=== PATIENT | male | born 1940 | race Caucasian/White ===

== ENCOUNTER 2017-01-28 00:18 | Inpatient (IN) | payer MEDICARE, OTHER ==
[2017-01-28] VITALS (8 sets, daily range): BP systolic 133–229; BP diastolic 55–90
[~2017-01-28] VITALS: Ht 175.3 cm; Wt 62.6 kg
--- NOTE | 2017-01-28 00:33 | NUR ---
AMBULATED TO ER BED 12
--- NOTE | 2017-01-28 00:35 | NUR ---
76 y/o M W/C/O ELEVATED BLOOD PRESSURE DESPITE TAKING BP MEDS. PT DENIES ANY CHEST PAIN OR SOB. MED HX HTN, COMPUTER PROGRAMMING MANAGER, HEART BIPASS, GALLSTONES AND DM. PT ON DIRECTOR OF ENTERPRISE ARCHITECTURE, NSR. ER MADE AWARE.
--- NOTE | 2017-01-28 01:06 | NUR ---
Note junito in EDM - 01/28/17 at 0129 by SARITA PT TAKEN TO FLOOR VIA GURNEY, MONITOR IN BED. STABLE, NO S/S OF DISTRESS NOTED UPON TRANSFER. ACCOMPANIED BY CHARGE NURSE, AND ME PRIMARY NURSE.
[2017-01-28 01:20] LABS: HEMATOCRIT 30.9 % (36-52); HEMOGLOBIN 9.7 g/dL (12.0-18.0); MEAN CORPUSCULAR HGB CONC 32 g/dL (33-37); WHITE BLOOD COUNT (AUTO) 5.3 K/uL (4.8-10.8)
--- NOTE | 2017-01-28 01:20 | NUR ---
PT TAKEN FOR CT/ X-RAY.
[2017-01-28 01:28] LABS: MEAN CORPUSCULAR HEMOGLOBIN 29 pg (27-31); MEAN CORPUSCULAR VOLUME 92 fL (80-94); PLATELET COUNT (AUTO) 126 K/uL (140-450); RED BLOOD CELL COUNT(AUTO) 3.36 MIL/uL (4.20-6.10); RED CELL DISTRIBUTION WIDTH 13.7 % (11.6-13.7)
[2017-01-28 01:32] LABS: ANION GAP 9.7 (8-16); CARBON DIOXIDE 31.7 mmol/L (21-32); CHLORIDE 106 mmol/L (98-107); CREATININE 1.7 mg/dL (0.7-1.3); GLUCOSE 97 mg/dL (74-106); POTASSIUM 5.4 mmol/L (3.5-5.1); SODIUM SERUM 142 mmol/L (136-145); UREA NITROGEN, BLOOD 39 mg/dL (7-18)
[2017-01-28 01:33] LABS: LYMPHOCYTES % (MANUAL) 18 % (20-46); MONOCYTES % (MANUAL) 6 % (5-12)
[2017-01-28 01:38] LABS: ALBUMIN 2.9 g/dL (3.4-5.0); ASPARTATE AMINOTRANSFERASE 15 U/L (15-37); TOTAL BILIRUBIN 0.3 mg/dL (0.0-1.0)
[2017-01-28 01:49] LABS: CREATINE KINASE MB 0.6 ng/mL (0-3.6)
[2017-01-28] MEDS ORDERED: hydrALAZINE 20 MG/ML VIAL IVP STA (02:07)
[2017-01-28] MEDS ORDERED: SODIUM POLYSTYRENE 15 GM/60 ML UDBTL PO ONE (02:10)
[2017-01-28] MEDS ORDERED: HYDROcodone/APAP 5/325 MG 1 TAB TAB PO PRN (02:25)
[2017-01-28] MEDS ORDERED: MORPHINE SULFATE 2 MG/ML SYR IVP PRN (02:25)
[2017-01-28] MEDS ORDERED: ACETAMINOPHEN 325 MG TAB PO PRN (02:25)
[2017-01-28] MEDS ORDERED: ONDANSETRON 4 MG/2 ML VIAL IVP PRN (02:25)
--- NOTE | 2017-01-28 02:40 | NUR ---
Patient will be admitted to care of dr burden. Admited to telemetry. Will go to [id number]. Belongings list completed. Report to SAUL jennings.
[2017-01-28 02:43] LABS: PROTHROMBIN TIME 10.6 secs (10.8-13.4)
[2017-01-28 02:45] LABS: CHOL/HDL RATIO 1.8 (1-4.5)
[2017-01-28] MEDS ORDERED: SIMV40TA1 PO (03:02)
[2017-01-28] MEDS ORDERED: CARV12.5 PO (03:02)
[2017-01-28] MEDS ORDERED: RANI300S3 PO (03:02)
[2017-01-28] MEDS ORDERED: LISI-420 PO (03:02)
[2017-01-28] MEDS ORDERED: TIM.5OS OP (03:02)
[2017-01-28] MEDS ORDERED: AMLO5TAB PO (03:02)
--- NOTE | 2017-01-28 03:03 | NUR ---
PT TRANSFERED TO FLOOR VIA GURNEY. GAMING WORKER IN BED, NO S/S OF DISTRESS NOTED UPON D/C. ACCOMPANIED BY ME PRIMARY NURSE, AND EMT.
[2017-01-28] MEDS ORDERED: LISINOPRIL 20 MG TAB PO SCH ×4 (03:35→21:00)
[2017-01-28] MEDS ORDERED: ENALAPRILAT 2.5 MG/2 ML VIAL IVP ONE (03:35)
[2017-01-28 03:45] LABS: APPEARANCE,URINE CLEAR (CLEAR); BILIRUBIN,URINE NEGATIVE (NEGATIVE); BLOOD, URINE NEGATIVE (NEGATIVE); COLOR,URINE YELLOW (YELLOW); LEUKOCYTE ESTERASE ,URINE NEGATIVE (NEGATIVE); NITRITE, URINE NEGATIVE (NEGATIVE); PH,URINE 6.5 (5.0-9.0); UGLUCOSE NEGATIVE (NEGATIVE)
[2017-01-28 03:52] LABS: BARBITURATE, URINE NEG. ng/ml (NEG <=200); BENZODIAZEPINE, URINE NEG. ng/mL (NEG <=200); CANNABINOID, URINE NEG. ng/mL (NEG <=50); COCAINE, URINE NEG. ng/mL (NEG <=300); OPIATE, URINE NEG. ng/mL (NEG <=2000); PHENCYCLIDINE SCREEN,URINE NEG. ng/mL (NEG <=25)
[2017-01-28 03:53] LABS: RBC,URINE 0-5 (RARE) /HPF (0-5); WBC,URINE 0-5 (RARE) /HPF (0-5)
--- NOTE | 2017-01-28 04:11 | NUR ---
RECEIVED PT. AT 03:05 BY CHARGE NURSE FROM ER. AWAKE AND ALERT. ORIENTED. NO SOB. DENIES ANY PAIN AT THIS TIME. DX. OF HYPERKALEMIA AND HYPERTENSION. PT. ORIENTED TO CALL LIGHT USE AND RAPID RESPONSE. USES CANE TO AMBULATE AROUND. SKIN INTACT. AFEBRILE. ORIENTED TO ROOM AND CAREGIVERS. VERBALIZES WELL IN IN[place]ES[place].
[2017-01-28] MEDS: NACL 0.9% 1,000 ML IV SCH ×2 (04:22→12:21)
--- NOTE | 2017-01-28 04:28 | NUR ---
PT. AMBULATES TO RESTROOM TO GO BM. OFFERRED TO PUT BEDSIDE COMMODE. REFUSED.STATED THAT HE WANTS TO GO RESTROOM THAT WAY HE CAN REALLY GO BM. UA COLLECTED AND SENT TO LAB. CALL LIGHT WITH IN REACH. ENCOURAGED TO CALL FOR ANY HELP HE MAY NEED OR IF IN PAIN.
--- NOTE | 2017-01-28 06:37 | NUR ---
ABLE TO GO BM X 3 FROM [place]ATE GIVEN TO HIM IN ER RT HYPERKALEMIC. ABLE TO VERBALIZE NEEDS WELL. TELEMETRY MONITORING.
--- NOTE | 2017-01-28 07:05 | NUR ---
RECEIVED PT REPORT AT BEDSIDE FROM NIGHT NURSE. PT IS AAOX4 AND SHOWS NO S/S OF ACUTE DISTRESS ON ROOM AIR. PT SKIN IS INTACT. PT AMB TO RR WITH CANE WITH A STEADY GAIT. PT ON TELE MONITOR. IV NOTED ON THE LT AC WITH IVF'S INFUSING WELL. IV IS PATENT AND INTACT WITH NO SIGNS OF INFILTRATION. PT WAS EXPLAINED POC FOR TODAY AND VERBALIZE UNDERSTANDING. THE BED IS IN LOW POSITION WITH CALL LIGHT WITHIN REACH. FALL PRECAUTIONS IN PLACE, ALL NEED'S MET AT THIS TIME. WILL CONTINUE TO MONITOR.
[2017-01-28] MEDS ORDERED: amLODIPine 5 MG TAB PO SCH ×2 (07:40→09:00)
[2017-01-28] MEDS ORDERED: CARVEDILOL 12.5 MG TAB PO SCH ×2 (07:40→09:00)
--- NOTE | 2017-01-28 07:50 | NUR ---
PT BP IS 172/65 HR 80 AND DENIES CHEST PAIN AND SOB. PT HAS AM BP MEDICATIONS. WILL ADMINISTER AND REASSESS BP PRN.
[2017-01-28 07:58] LABS: ANION GAP 9.5 (8-16); CARBON DIOXIDE 29.4 mmol/L (21-32); CHLORIDE 108 mmol/L (98-107); CREATININE 1.5 mg/dL (0.7-1.3); GLUCOSE 88 mg/dL (74-106); POTASSIUM 4.9 mmol/L (3.5-5.1); SODIUM SERUM 142 mmol/L (136-145); UREA NITROGEN, BLOOD 35 mg/dL (7-18)
[2017-01-28] MEDS: DOCUSATE 100 MG/10 ML UDC GT SCH (08:15)
--- NOTE | 2017-01-28 08:30 | NUR ---
ADMINISTERED SCHEDULED MEDICATIONS. PT TOLERATED WELL AND SWALLOWED WITHOUT DIFFICULTY. WILL CONTINUE TO MONITOR.
[2017-01-28] MEDS ORDERED: PANTOPRAZOLE 40 MG TABEC PO SCH (09:00)
[2017-01-28] MEDS ORDERED: TIMOLOL OP 0.5% 5 ML BTL OP SCH (09:00)
[2017-01-28] MEDS ORDERED: SIMVASTATIN 40 MG TAB PO SCH ×2 (09:00)
[2017-01-28] MEDS: ATORVASTATIN 20 MG TAB PO SCH (09:36)
--- NOTE | 2017-01-28 09:45 | NUR ---
BP WAS REASSESSED AND IS 148/62 HR 84, PT DENIES CHEST PAIN AND SOB.
--- NOTE | 2017-01-28 10:45 | NUR ---
PT IS RESTING COMFORTABLY IN BED AND SHOWS NO S/S OF ACUTE DISTRESS ON ROOM AIR.
--- NOTE | 2017-01-28 12:13 | NUR ---
CM NOTE INITIAL REVIEW FAXED TO [facility] / FAX# [phone], ATTN: CALEB #[phone]
--- NOTE | 2017-01-28 12:15 | NUR ---
PT IS AAOX4 AND SHOWS NO S/S OF ACUTE DISTRESS ON ROOM AIR. PT DENIES PAIN AND SOB. ALL OF PT'S NEEDS AT MET AT THIS TIME.
--- NOTE | 2017-01-28 12:59 | NUR ---
PATIENT HAS BEEN SCREENED AND CATEGORIZED MODERATE NUTRITION RISK. PATIENT WILL BE SEEN WITHIN 3-5 DAYS OF ADMISSION. 01/30/17-02/01/[address]
--- NOTE | 2017-01-28 13:55 | NUR ---
PT IS SLEEPING AND SHOWS NO S/S OF ACUTE DISTRESS ON ROOM AIR. PT IS EASILY AROUSABLE TO VOICE. PT'S NEEDS MET AT THIS TIME. WILL CONTINUE TO MONITOR.
--- NOTE | 2017-01-28 16:15 | NUR ---
PT HAS SISTER AT BEDSIDE. PT IS AAOX4 AND SHOWS NO S/S OF ACUTE DISTRESS ON ROOM AIR. ALL OF PT'S NEEDS MET AT THIS TIME. WILL CONTINUE TO MONITOR.
--- NOTE | 2017-01-28 18:15 | NUR ---
PT TOLERATED DINNER WELL AND DENIES NAUSEA, VOMITING, CHEST PAIN AND SOB. ALL OF PT'S NEEDS MET AT THIS TIME. THE BED IS IN LOW POSITION WITH CALL LIGHT WITHIN REACH. WILL CONTINUE TO MONITOR.
--- NOTE | 2017-01-28 19:25 | NUR ---
GAVE PT REPORT AT BEDSIDE TO NIGHT NURSE. PT ENDORSED IN STABLE CONDITION.
[2017-01-28] MEDS: CARVEDILOL 12.5 MG TAB PO SCH (21:07)
[2017-01-28] MEDS: TIMOLOL OP 0.5% 5 ML BTL BOTH EYES SCH (21:07)
--- NOTE | 2017-01-28 21:11 | NUR ---
ADMINISTERED DUE MEDS WITH EDUCATION, PT VERBALIZED UNDERSTANDING, TOLERATED MEDS WELL. ALL NEEDS MET. IVF INFUSING WELL. SAFETY MEASURES ENSURED. CALL LIGHT WITHIN REACH. WILL CONTINUE TO MONITOR.
--- NOTE | 2017-01-28 22:27 | NUR ---
CALLED DR ESTES, DISCUSSED DX HTN, HYPERKALEMIA, HX OF DM. ASKED PT IF HE IS DIABETIC, PT STATED "I THINK I'M BORDERLINE." DISCUSSED THAT THERE ARE NO ACCUCHECKS ACHS AT THIS TIME. PT'S LAST BLOOD GLUCOSE WAS 88 FROM PT'S CBC UPON ADMISSION. MD AWARE, NO ADDITIONAL ORDERS AT THIS TIME.
--- NOTE | 2017-01-28 23:58 | NUR ---
PT RESTING COMFORTABLY, NO S/S OF ACUTE DISTRESS. ALL NEEDS MET. IVF INFUSING WELL. SAFETY MEASURES ENSURED. CALL LIGHT WITHIN REACH. WILL CONTINUE TO MONITOR.
[2017-01-29] VITALS: BP 129/55
--- NOTE | 2017-01-29 02:01 | NUR ---
PT SLEEPING COMFORTABLY, NO S/S OF ACUTE DISTRESS. ALL NEEDS MET. IVF INFUSING WELL. SAFETY MEASURES ENSURED. CALL LIGHT WITHIN REACH. WILL CONTINUE TO MONITOR.
[2017-01-29 04:00] VITALS: BP 133/52
--- NOTE | 2017-01-29 04:11 | NUR ---
PT SLEEPING COMFORTABLY, AROUSABLE TO NAME, NO S/S OF ACUTE DISTRESS. ALL NEEDS MET. IVF INFUSING WELL. SAFETY MEASURES ENSURED. CALL LIGHT WITHIN REACH. WILL CONTINUE TO MONITOR.
[2017-01-29 06:53] LABS: BASOPHILS # (AUTO) 0.1 K/uL (0.00-0.22); BASOPHILS % (AUTO) 1.7 % (0.0-2.0); EOSINOPHILS # (AUTO) 0.1 K/uL (0-0.4); EOSINOPHILS % (AUTO) 1.5 % (0.0-4.0); HEMOGLOBIN 8.7 g/dL (12.0-18.0); LYMPHOCYTES % (AUTO) 20.9 % (20.5-51.1); MEAN CORPUSCULAR HEMOGLOBIN 29 pg (27-31); MEAN CORPUSCULAR HGB CONC 32 g/dL (33-37); MEAN CORPUSCULAR VOLUME 91 fL (80-94); MONOCYTES # (AUTO) 0.5 K/uL (0.8-1.0); MONOCYTES % (AUTO) 10.9 % (1.7-9.3); PLATELET COUNT (AUTO) 109 K/uL (140-450); RED BLOOD CELL COUNT(AUTO) 2.97 MIL/uL (4.20-6.10); RED CELL DISTRIBUTION WIDTH 13.7 % (11.6-13.7); WHITE BLOOD COUNT (AUTO) 4.7 K/uL (4.8-10.8)
--- NOTE | 2017-01-29 07:10 | NUR ---
ENDORSED PLAN OF CARE TO AM NURSE. CONDITION STABLE.
--- NOTE | 2017-01-29 07:11 | NUR ---
RECEIVED REPORT FROM ANTITANK ASSAULT GUNNER NURSE AT BEDSIDE FOR CONTINUITY OF CARE. PT IS AWAKE AND ORIENTED. INTRODUCED OURSELVES AND UPDATED THE BOARD. PT IS HARD ON HEARING ON RT SIDE. IV ON L AC 22G NS AT 100ML. IV PUMP BEEPING. HIGH PRESSURE. WILL COME BACK AND FIX. TURNED IT OFF FOR NOW. CANE ON SIDE OF BED. WILL CONTINUE TO MONITOR PT.
[2017-01-29 07:22] LABS: MAGNESIUM 1.8 mg/dL (1.8-2.4); PHOSPHORUS 3.9 mg/dL (2.5-4.9)
[2017-01-29 07:34] LABS: ANION GAP 9.2 (8-16); CARBON DIOXIDE 29.6 mmol/L (21-32); CHLORIDE 110 mmol/L (98-107); CREATININE 1.6 mg/dL (0.7-1.3); GLUCOSE 88 mg/dL (74-106); POTASSIUM 4.8 mmol/L (3.5-5.1); SODIUM SERUM 144 mmol/L (136-145); UREA NITROGEN, BLOOD 29 mg/dL (7-18)
--- NOTE | 2017-01-29 07:35 | NUR ---
V/S: HIGH BP 167/54 X 2. ALL OTHERS WITHIN NORMAL RANGE. KADI RIZZO. PLAN FOR TODAY: CT OF CHEST AND POSSIBLY D/C TOMORROW. WILL CONTINUE TO MONITOR PT.
[2017-01-29 08:00] VITALS: BP 167/54
[2017-01-29] MEDS: ATORVASTATIN 20 MG TAB PO SCH (09:10)
[2017-01-29] MEDS: DOCUSATE 100 MG/10 ML UDC GT SCH (09:10)
[2017-01-29] MEDS: CARVEDILOL 12.5 MG TAB PO SCH ×2 (09:11→20:30)
[2017-01-29] MEDS: amLODIPine 5 MG TAB PO SCH (09:11)
[2017-01-29] MEDS: PANTOPRAZOLE 40 MG TABEC PO SCH (09:11)
[2017-01-29] MEDS: TIMOLOL OP 0.5% 5 ML BTL BOTH EYES SCH ×2 (09:12→20:31)
--- NOTE | 2017-01-29 09:15 | NUR ---
ADMINISTERED MORNING MEDS. PT TOLERATED WELL. AMBULATED WITH CANE TO RESTROOM. ASSISTED BACK TO BED. WILL CONTINUE TO MONITOR PT.
--- NOTE | 2017-01-29 10:35 | NUR ---
RADIOLOGY TOOK PT FOR CT OF CHEST IN WHEELCHAIR. SL PT. PT IN STABLE CONDITION.
--- NOTE | 2017-01-29 10:46 | NUR ---
RETURNED FROM CT. PT TOLERATED WELL. BACK IN BED. FLUIDS RECONNECTED. WILL CONTINUE TO MONITOR PT.
[2017-01-29 12:00] VITALS: BP 123/79
--- NOTE | 2017-01-29 13:23 | NUR ---
PT ATE LUNCH. RESTING COMFORTABLY IN BED. IV BEEPING. FLUSHED IV. IV SITE INFUSING FINE. WILL CONTINUE TO MONITOR PT.
--- NOTE | 2017-01-29 14:46 | NUR ---
FAXED CONCURRENT REVIEW TO [facility] [phone] PHONE CALEB [phone]
[2017-01-29 16:00] VITALS: BP 133/51
--- NOTE | 2017-01-29 16:11 | NUR ---
PT VISITING WITH SISTER, ZONIA AND HER . NO COMPLAINTS AT THIS TIME. WANTS TO KNOW WHEN HE CAN LEAVE. BP STILL ELEVATED. D/C TOMORROW.
--- NOTE | 2017-01-29 19:10 | NUR ---
ENDORSED PT TO THE RING SORTER NURSE. SISTER AND BROTHER IN LAW AT BEDSIDE. NOTIFIED PT THAT HE WILL BE D/C TOMORROW. PT AND FAMILY AWARE. PT IN STABLE CONDITION.
--- NOTE | 2017-01-29 19:11 | NUR ---
PATIENT REPORT RECEIVED FROM MORNING NURSE. PATIENT IS AWAKE, ALERT, AND ORIENTED. NO SIGNS AND SYMPTOMS OF DISTRESS NOTED, NO COMPLAINTS OF PAIN AT THIS TIME. PATIENT IS ON ROOM AIR. FAMILY IS PRESENT AT BEDSIDE. IV SITE NOTED ON LEFT FOREARM SALINE LOCKED. BED IN LOWEST POSITION, SIDE RAILS UP AND CALL LIGHT WITHIN REACH. WILL CONTINUE TO MONITOR.
[2017-01-29 20:00] VITALS: BP 136/63
[2017-01-30] VITALS: BP 117/46
[2017-01-30 04:00] VITALS: BP 137/54
[2017-01-30 06:51] LABS: ANION GAP 10.4 (8-16); CARBON DIOXIDE 28.8 mmol/L (21-32); CHLORIDE 108 mmol/L (98-107); CREATININE 1.7 mg/dL (0.7-1.3); GLUCOSE 96 mg/dL (74-106); POTASSIUM 4.2 mmol/L (3.5-5.1); SODIUM SERUM 143 mmol/L (136-145)
[2017-01-30 06:53] LABS: MAGNESIUM 1.9 mg/dL (1.8-2.4); PHOSPHORUS 3.7 mg/dL (2.5-4.9)
[2017-01-30 06:57] LABS: WHITE BLOOD COUNT (AUTO) 4.4 K/uL (4.8-10.8)
[2017-01-30 06:58] LABS: HEMATOCRIT 26.9 % (36-52); HEMOGLOBIN 8.8 g/dL (12.0-18.0); MEAN CORPUSCULAR HEMOGLOBIN 30 pg (27-31); MEAN CORPUSCULAR HGB CONC 33 g/dL (33-37); MEAN CORPUSCULAR VOLUME 92 fL (80-94); PLATELET COUNT (AUTO) 104 K/uL (140-450); RED BLOOD CELL COUNT(AUTO) 2.92 MIL/uL (4.20-6.10); RED CELL DISTRIBUTION WIDTH 14.5 % (11.6-13.7)
[2017-01-30 06:59] LABS: BASOPHILS % (AUTO) 0.3 % (0.0-2.0); EOSINOPHILS # (AUTO) 0.1 K/uL (0-0.4); EOSINOPHILS % (AUTO) 1.8 % (0.0-4.0); LYMPHOCYTES % (AUTO) 22.6 % (20.5-51.1); MONOCYTES # (AUTO) 0.5 K/uL (0.8-1.0); MONOCYTES % (AUTO) 10.2 % (1.7-9.3); NEUTROPHILS # (AUTO) 2.9 K/uL (1.8-7.7); NEUTROPHILS % (AUTO) 65.1 % (42.2-75.2)
[2017-01-30 07:03] LABS: UREA NITROGEN, BLOOD 36 mg/dL (7-18)
--- NOTE | 2017-01-30 07:22 | NUR ---
PATIENT REPORT GIVEN TO MORNING NURSE AT BEDSIDE. PATIENT IS IN STABLE CONDITION
--- NOTE | 2017-01-30 07:25 | NUR ---
RECEIVED PT REPORT AT BEDSIDE FROM NIGHT NURSE. PT IS AAOX3 AND SHOWS NO S/S OF ACUTE DISTRESS ON ROOM AIR. PT SKIN IS INTACT. PT ON TELE MONITOR. IV NOTED ON THE LT AC SL. IV IS PATENT AND INTACT WITH NO SIGNS OF INFILTRATION. PT WAS EXPLAINED POC FOR TODAY AND VERBALIZE UNDERSTANDING. THE BED IS IN LOW POSITION WITH CALL LIGHT WITHIN REACH. FALL PRECAUTIONS IN PLACE, ALL NEED'S MET AT THIS TIME. WILL CONTINUE TO MONITOR.
[2017-01-30 08:00] VITALS: BP 120/65
[2017-01-30] MEDS: PANTOPRAZOLE 40 MG TABEC PO SCH (08:37)
[2017-01-30] MEDS: amLODIPine 5 MG TAB PO SCH (08:38)
[2017-01-30] MEDS: ATORVASTATIN 20 MG TAB PO SCH (08:38)
[2017-01-30] MEDS: DOCUSATE 100 MG/10 ML UDC GT SCH (08:39)
[2017-01-30] MEDS: CARVEDILOL 12.5 MG TAB PO SCH (08:39)
[2017-01-30] MEDS: TIMOLOL OP 0.5% 5 ML BTL BOTH EYES SCH (08:39)
--- NOTE | 2017-01-30 08:43 | NUR ---
ADMINISTERED SCHEDULED MEDICATIONS. PT TOLERATED ACTIVITY WELL. PT TOLERATED BREAKFAST CARDIAC DIET WELL WITH NO NAUSEA/VOMITING. PT DENIES CHEST PAIN AND SOB. ALL OF PT'S NEEDS MET AT THIS TIME WILL CONTINUE TO MONITOR.
[2017-01-30] MEDS ORDERED: AMLO5TAB4 PO (09:18)
--- NOTE | 2017-01-30 10:27 | NUR ---
PT HAS BEEN DISCHARGED. ALL DISCHARGE PAPERWORK INSTRUCTIONS AND PRESCRIPTIONS GIVEN. ALL PAPERWORK SIGNED. ALL QUESTIONS ANSWERED. PT AND PT'S SISTER AT BEDSIDE VERBALIZED UNDERSTANDING OF CONTINUITY OF CARE AT HOME. IV DISCONTINUED WITH CANNULA INTACT. WRISTBANDS AND TELE MONITOR REMOVED. PT LEFT UNIT IN WHEELCHAIR WITH FAMILY PRESENT AT SIDE. PT IN STABLE CONDITION.
[2017-01-30 12:40] LABS: FOLIC ACID 12.4 ng/mL (>3.0)
--- NOTE | 2017-01-30 14:39 | NUR ---
FAXED CONCURRENT REVIEW AND DISCHARGE SUMMARY TO [facility] [phone] PHONE CALEB [phone]
== END 2017-01-30 10:27 | disposition home or self-care (01) | DRG 682 ==
LOC: MED 00:18 → MTU 02:21
PROVIDERS: ADMIT Family Medicine Sports Medicine; ATTEND Family Medicine Sports Medicine
DX: N17.0 Acute kidney failure with tubular necrosis (principal); I50.43 Acute on chronic combined systolic (congestive) and diastolic (congestive) heart failure; E11.22 Type 2 diabetes mellitus with diabetic chronic kidney disease; E87.5 Hyperkalemia; E44.1 Mild protein-calorie malnutrition; I13.0 Hypertensive heart and chronic kidney disease with heart failure and stage 1 through stage 4 chronic kidney disease, or unspecified chronic kidney disease; D64.9 Anemia, unspecified; E78.5 Hyperlipidemia, unspecified; I16.0 Hypertensive urgency; J44.9 Chronic obstructive pulmonary disease, unspecified; N18.9 Chronic kidney disease, unspecified; Z90.49 Acquired absence of other specified parts of digestive tract; Z95.1 Presence of aortocoronary bypass graft; Z68.20 Body mass index [BMI] 20.0-20.9, adult; Z80.0 Family history of malignant neoplasm of digestive organs; Z82.49 Family history of ischemic heart disease and other diseases of the circulatory system; Z87.891 Personal history of nicotine dependence
CPT/HCPCS: 36415; 70450; 71010; 71250; 80048; 80053; 80305; 81001; 82150; 82550; 82553; 82607; 82728; 82746; 83036; 83540; 83690; 83735; 83880; 84100; 84484; 85025; 85045; 85610; 85730; 87081; 93005; 96374; 99285; J0360; J3490; J7030; Q0092